=== PATIENT | male | born 1990 | race Hispanic/Latino ===

== ENCOUNTER 2020-11-09 17:32 | Emergency (ER) | payer OTHER ==
[~2020-11-09] VITALS: Ht 167.6 cm; Wt 49.9 kg
[2020-11-09 17:34] VITALS: BP 119/76
== END 2020-11-09 19:29 | disposition home or self-care (01) ==
LOC: EDH 17:32
DX: R10.9 Unspecified abdominal pain (principal); Z53.21 Procedure and treatment not carried out due to patient leaving prior to being seen by health care provider